=== PATIENT | male | born 1950 | race Caucasian/White ===

== ENCOUNTER → 2019-06-29 | Outpatient (CLI) | payer BC, MEDICARE ==
[~2019-06-29] MED LIST: AMLO1TAB55 PO; DULO30CA; DULO60CA6 PO; FNT75TD; METH5TAB PO; MORP10CA11 PO; MTH10T; QTP100T; QTP25T; QTP25T PO; SULAR
[2019-06-29 16:49] LABS: BASOPHILS % (AUTO) 0 % (0-10); EOSINOPHILS # (AUTO) 0.1 10^3/uL (0.0-0.3); EOSINOPHILS % (AUTO) 2 % (0-10); HEMATOCRIT 46 % (40-54); HEMOGLOBIN 16.1 G/DL (13.3-17.7); LYMPHOCYTES # (AUTO) 2.4 X 10^3 (1.0-4.0); LYMPHOCYTES % (AUTO) 30 % (12-44); MEAN CORPUSCULAR HEMOGLOBIN 30 PG (25-34); MEAN CORPUSCULAR HGB CONC 35 G/DL (32-36); MEAN CORPUSCULAR VOLUME 86 FL (80-99); MEAN PLATELET VOLUME 9.7 FL (7.4-10.4); MONOCYTES # (AUTO) 0.8 X 10^3 (0.0-1.0); MONOCYTES % (AUTO) 11 % (0-12); NEUTROPHILS # (AUTO) 4.5 X 10^3 (1.8-7.8); NEUTROPHILS % (AUTO) 57 % (42-75); PLATELET COUNT 159 10^3/uL (130-400); RED CELL DISTRIBUTION WIDTH 13.5 % (10.0-14.5); WHITE BLOOD COUNT 7.9 10^3/uL (4.3-11.0)
[2019-06-29 17:11] LABS: ALBUMIN 4.3 GM/DL (3.2-4.5); BILIRUBIN,TOTAL 0.4 MG/DL (0.1-1.0); CALCIUM 9.3 MG/DL (8.5-10.1); CREATININE SERUM 1.24 MG/DL (0.60-1.30); TOTAL PROTEIN 7.1 GM/DL (6.4-8.2)
== END ==
LOC: LAB 16:32
PROVIDERS: ATTEND Nurse Practitioner Family
DX: M79.605 Pain in left leg (principal); R22.42 Localized swelling, mass and lump, left lower limb
CPT/HCPCS: 36415; 80053; 85025; 85379

== ENCOUNTER → 2019-07-01 | Outpatient (CLI) | payer BC, MEDICARE ==
--- NOTE | 2019-07-01 15:15 | Diagnostic Imaging Report ---
EXAMINATION: US Lower Extremity Venous Duplex Left. TECHNIQUE: Multiple real-time grayscale images were obtained over the left lower extremity in various projections. Additional spectral analysis and color Doppler duplex images were also obtained. HISTORY: Left lower extremity pain and edema. COMPARISON: None available. FINDINGS: The left common femoral vein, deep femoral vein, superficial femoral vein and popliteal vein are patent with normal comer scale and doppler appearance. There is normal respiratory variation and augmentation. IMPRESSION: 1. No DVT of the left lower extremity. Dictated by: Dictated on workstation # [id number]
--- NOTE | 2019-07-01 15:35 | Diagnostic Imaging Report ---
EXAM: CHEST PA/LAT (2 VIEW). INDICATION: Chest pain. COMPARISON: None. FINDINGS: Normal heart size and central pulmonary vascularity. No focal pulmonary opacity, pleural effusion, or pneumothorax. No acute osseous findings. IMPRESSION: No acute cardiopulmonary findings. Dictated by: Dictated on workstation # [id number]
== END ==
LOC: RAD 13:49
PROVIDERS: ATTEND Nurse Practitioner Family
DX: R07.9 Chest pain, unspecified (principal); R60.0 Localized edema
CPT/HCPCS: 71046

== ENCOUNTER → 2019-07-16 | Outpatient (CLI) | payer BC | LOC: LABNPT 10:48 | DX: R50.9 Fever, unspecified (principal); Z20.828 Contact with and (suspected) exposure to other viral communicable diseases ==

== ENCOUNTER → 2019-07-19 | Outpatient (CLI) | payer BC | LOC: LABNPT 13:51 | DX: R50.9 Fever, unspecified (principal); Z20.828 Contact with and (suspected) exposure to other viral communicable diseases | CPT/HCPCS: 87430; 87635; 87804 ==